=== PATIENT | female | born 1960 | race Caucasian/White ===

== ENCOUNTER 2018-08-03 11:40 | Emergency (ER) | payer MEDICARE ==
[2018-08-03] MEDS ORDERED: Morphine 10 MG/ML VIAL ONE (12:10)
[2018-08-03] MEDS ORDERED: levETIRAcetam 500 MG TAB ONE (12:20)
[2018-08-03] MEDS ORDERED: Cyclobenzaprine 10 MG TAB ONE (12:30)
[2018-08-03] MEDS ORDERED: Ketorolac Tromethamine 30 MG/ML VIAL ONE (12:30)
== END 2018-08-03 12:55 | disposition home or self-care (01) ==
LOC: MADERS 11:40
DX: R56.9 Unspecified convulsions (principal); M54.5 Low back pain; J44.9 Chronic obstructive pulmonary disease, unspecified; F17.210 Nicotine dependence, cigarettes, uncomplicated; Z79.899 Other long term (current) drug therapy; Z79.891 Long term (current) use of opiate analgesic
CPT/HCPCS: 96374; 96375; J1885; J2270

== ENCOUNTER 2018-11-22 08:03 | Emergency (ER) | payer MEDICARE ==
[2018-11-22] MEDS ORDERED: Metoclopramide HCl 10 MG/2 ML VIAL ONE (08:44)
--- NOTE | 2018-11-22 09:07 | CT ---
CT Brain WO Con: 11/22/2018 8:34 AM CLINICAL HISTORY: Headache with blurry vision. COMPARISON: 06/12/2016 FINDINGS: Hemorrhage: None. Ventricular system: Normal in size and morphology for the patient's age. Cerebral parenchyma: Normal Midline shift: None. Mass: No mass effect. Calvarium: Normal. Visualized Paranasal sinuses: Clear. IMPRESSION: No acute intracranial abnormalities.
--- NOTE | 2018-11-22 09:18 | CT ---
CT Cervical Spine WO Con Indication: Pain/Injury COMPARISON: None FINDINGS: Acute fracture: No acute fracture Spinal alignment: Mild spondylolisthesis at C7-T1. Mild rightward convexity curvature. Vertebral body heights: Maintained. Cervical spine degenerative change: None of significance. IMPRESSION: No acute osseous abnormality.
[2018-11-22] MEDS ORDERED: Morphine 4 MG/ML VIAL ONE (09:35)
--- NOTE | 2018-11-22 09:56 | CT ---
CT FACIAL BONES WITH CORONAL AND SAGITTAL REFORMATIONS: HISTORY: Fall, left eye swelling and blurry vision. FINDINGS: The facial bones are intact. No orbital wall fracture is seen on either side. No temporomandibular dislocation is noted. There is mild mucosal disease in the paranasal sinuses. There is soft tissue swelling in the left periorbital region. No retrobulbar mass or proptosis is seen on either side. IMPRESSION: No CT evidence of facial bone/orbital wall fracture. POS: [facility]
== END 2018-11-22 10:15 | disposition home or self-care (01) ==
LOC: MADERS 08:03
DX: S09.90XA Unspecified injury of head, initial encounter (principal); G43.909 Migraine, unspecified, not intractable, without status migrainosus; F17.210 Nicotine dependence, cigarettes, uncomplicated; Z79.899 Other long term (current) drug therapy; W19.XXXA Unspecified fall, initial encounter
CPT/HCPCS: 70450; 70486; 72125; 96374; 96375; J2270; J2765

== ENCOUNTER 2020-05-29 08:44 | Emergency (ER) | payer MEDICARE ==
[2020-05-29] MEDS ORDERED: Sodium Chloride 0.9% 1,000 ML ONE (09:32)
[2020-05-29] MEDS ORDERED: Fentanyl 100 MCG/2 ML VIAL ONE (10:34)
[2020-05-29 10:53] LABS: #Basophils 0.1 thou/uL (0.0-0.2); #Eosinphils 0.1 thou/uL (0.0-0.7); #Lymphocytes 2.8 thou/uL (1.20-3.40); #Monocytes 0.7 thou/uL (0.11-0.59); #Neutrophils 5.8 thou/uL (1.40-6.50); %Basophils 1.1 % (0.0-1.0); %Lymphocytes 29.9 % (21.0-51.0); %Monocytes 7.2 % (0.0-10.0); %Neutrophils 60.8 % (42.0-75.0); Hemoglobin 14.4 g/dL (12.0-16.0); Mean Corpuscular HGB CONC 32.8 g/dL (32.0-36.0); Mean Corpuscular Hemoglobin 33.5 pg (27.0-31.0); Mean Corpuscular Volume 102.2 fL (78.0-98.0); Mean Platelet Volume 6.9 fL (7.4-10.4); Platelet Count 211 thou/uL (130-400); Red Blood Cell (RBC) Count 4.29 mill/uL (4.20-5.40); White Blood Cell (WBC) Count 9.5 thou/uL (4.8-10.8)
[2020-05-29 11:00] LABS: ALT (SGPT) 21 U/L (8-55); AST (SGOT) 21 U/L (5-34); Albumin 3.9 g/dL (3.4-4.8); Alkaline Phosphatase 114 U/L (40-110); Anion Gap 18 mmol/L (10-20); BUN (Urea Nitrogen) 34 mg/dL (9.8-20.1); Bilirubin, Total 0.2 mg/dL (0.2-1.2); Calc. Creatinine Clearance 0 mL/min (70-130); Calcium 9.2 mg/dL (7.8-10.44); Carbon Dioxide 23 mmol/L (23-31); Chloride 102 mmol/L (98-107); Estimated GFR-MDRD 76; Globulin 3.2 g/dL (2.4-3.5); Glucose 99 mg/dL (80-115); Potassium 4.8 mmol/L (3.5-5.1); Protein, Total 7.1 g/dL (6.0-8.3); Sodium 138 mmol/L (136-145)
== END 2020-05-29 11:35 | disposition short-term general hospital (02) ==
LOC: MADERS 08:44
DX: M00.9 Pyogenic arthritis, unspecified (principal); Z20.828 Contact with and (suspected) exposure to other viral communicable diseases; J44.9 Chronic obstructive pulmonary disease, unspecified; F41.9 Anxiety disorder, unspecified; F17.210 Nicotine dependence, cigarettes, uncomplicated; Z79.899 Other long term (current) drug therapy
CPT/HCPCS: 80053; 83605; 85025; 87040; 96374; 96376; J3010; J7050